=== PATIENT | male | born 1985 ===

== ENCOUNTER 2017-07-13 15:57 | Emergency (ER) | payer OTHER ==
[~2017-07-13] VITALS: Ht 175.3 cm; Wt 81.6 kg
--- NOTE | 2017-07-13 17:46 | Diagnostic Imaging Report ---
INDICATION: Right foot swelling. FINDINGS: Three views of the right foot show no fracture, dislocation or other acute abnormalities. IMPRESSION: Negative right foot. Dictated by: Dictated on workstation # [id number]
[2017-07-13] MEDS ORDERED: SULF1TAB35 PO (17:56)
--- NOTE | 2017-07-13 17:56 | ED Lower Extremity ---
General Chief Complaint: Lower Extremity Stated Complaint: PAIN R FOOT Nursing Triage Note: pt reports right foot is red et swollen x 2 days. reports he has been back-packing et walking a lot. Nursing Sepsis Screen: No Definite Risk Source: patient Exam Limitations: no limitations History of Present Illness Date Seen by Provider: Jul 13, 2017 Time Seen by Provider: 17:51 Initial Comments To ER with right foot pain and swelling for the past 2 days. He states that he did kick something a few days ago. However he's been walking a lot and I believe him to be homeless. Onset: yesterday Severity: moderate Pain/Injury Location: right foot Allergies and Home Medications Allergies Coded Allergies: No Known Drug Allergies (Unverified , 07/13/17) Home Medications No Active Prescriptions or Reported Meds Patient Home Medication List Home Medication List Reviewed: Yes Constitutional: see HPI EENTM: see HPI Respiratory: no symptoms reported Cardiovascular: no symptoms reported Genitourinary: no symptoms reported Musculoskeletal: see HPI Skin: no symptoms reported Psychiatric/Neurological: No Symptoms Reported Past Gczngqu-Lommae-Thjcvy Hx Patient Social History Alcohol Use: Denies Use Recreational Drug Use: No Smoking Status: Current Everyday Smoker Type Used: Cigarettes Recent Foreign Travel: No Contact w/Someone Who Travel: No Recent Infectious Disease Expo: No Physical Exam Vital Signs Vital Signs - First Documented 07/13/17 16:32 Temp 98.8 Pulse 100 Resp 16 B/P (MAP) 132/83 (99) Pulse Ox 98 O2 Delivery Room Air Capillary Refill : Less Than 3 Seconds General Appearance: WD/WN, no apparent distress HEENT: PERRL/EOMI, normal ENT inspection Neck: non-tender, full range of motion Respiratory: no respiratory distress, no accessory muscle use Hips: bilateral hip non-tender, bilateral hip normal inspection, bilateral hip normal range of motion Legs: bilateral leg non-tender, bilateral leg normal inspection, bilateral leg normal range of motion Knees: bilateral knee non-tender, bilateral knee normal inspection, bilateral knee normal range of motion Ankles: bilateral ankle non-tender, bilateral ankle normal inspection, bilateral ankle normal range of motion Feet: right foot pain, right foot swelling, right foot other (There is no erythema, there is only a faint amount of swelling to the right foot. There is a ulcer consistent with a ruptured blister to the lateral aspect of the little toe ) Progress/Results/Core Measures My Orders Orders - CALVO,[employer]ER [employer] Foot, Right, 3 View (07/13/17 17:19) Vital Signs/I&O 07/13/17 16:32 Temp 98.8 Pulse 100 Resp 16 B/P (MAP) 132/83 (99) Pulse Ox 98 O2 Delivery Room Air Blood Pressure Mean: 99 Departure Impression Primary Impression: Ulcer of right foot Disposition: 01 HOME, SELF-CARE Condition: Stable Departure-Patient Inst. Decision time for Depature: 17:53 Referrals: NO,LOCAL PHYSICIAN (PCP) Primary Care Physician Patient Instructions: Wound Care (DC) Add. Discharge Instructions: 1. Return to ER for any concerns 2. antibiotics as directed All discharge instructions reviewed with patient and/or family. Voiced understanding. Scripts Sulfamethoxazole/Trimethoprim (Bactrim Ds Tablet) 1 Each Tablet 1 EACH PO BID, #[id number] TAB Prov: MAJOR CALVO APRN 07/13/17 MAJOR CALVO APRN Jul 13, 2017 17:56
[2017-07-13] MEDS ORDERED: TRIM/SULFAMETH 160/800 (SEPTRA DS) TAB PO ONE (18:00)
[2017-07-13 18:06] VITALS: BP 132/83
== END 2017-07-13 18:06 | disposition home or self-care (01) ==
LOC: ER 16:00
DX: L97.519 Non-pressure chronic ulcer of other part of right foot with unspecified severity (principal); F17.210 Nicotine dependence, cigarettes, uncomplicated
CPT/HCPCS: 73630